=== PATIENT | male | born 1980 | race Caucasian/White ===

== ENCOUNTER 2021-08-17 18:10 | Emergency (ER) | payer OTHER | END 2021-08-18 00:19 | disposition home or self-care (01) | LOC: FER 18:10 | DX: M25.561 Pain in right knee (principal); M54.50 Low back pain, unspecified; W17.2XXA Fall into hole, initial encounter; Y92.009 Unspecified place in unspecified non-institutional (private) residence as the place of occurrence of the external cause | CPT/HCPCS: 72131; 73564; 73590 ==

== ENCOUNTER → 2021-11-15 | Day surgery (SDC) | payer OTHER ==
[~2021-11-15] VITALS: Ht 172.7 cm; Wt 86.2 kg
[~2021-11-15] MED LIST: ARTANE2 MG PO; BACLOFEN 20MG T20 MG PO; GABAPENTIN600 MG PO; HYDROCODON-ACE1 EAC2 PO; LAMICTAL100 MG PO; PERSERIS PO; PROZAC20 MG PO; REMERON15 MG PO
[2021-11-15 07:32] LABS: HCT 43.8 % (42.0-52.0); MCH 32.3 pg (25.0-31.0); MCHC 34.2 g/dL (32.0-36.0); MCV 94.2 fL (78.0-100.0); MPV 8.6 fL (6.0-9.5); RBC 4.65 M/uL (4.70-6.00); RDW 13.5 % (11.5-14.0); WBC 4.6 K/uL (4.0-10.5)
[2021-11-15 08:07] LABS: BILIRUBIN - TOTAL 0.4 mg/dL (0.2-1.0); BUN/CREAT RATIO (CALC) 15.7 RATIO; CREATININE 1.08 mg/dL (0.67-1.17); GLOBULIN (CALCULATION) 3.7 g/dL; POTASSIUM 3.7 mmol/L (3.5-5.1); TOTAL PROTEIN 7.7 g/dL (6.4-8.2)
== END | disposition home or self-care (01) ==
LOC: FAS 06:41
PROVIDERS: Orthopaedic Surgery
DX: S83.281A Other tear of lateral meniscus, current injury, right knee, initial encounter (principal); M17.11 Unilateral primary osteoarthritis, right knee; M23.41 Loose body in knee, right knee; M25.861 Other specified joint disorders, right knee; F31.9 Bipolar disorder, unspecified; Z79.899 Other long term (current) drug therapy; X58.XXXA Exposure to other specified factors, initial encounter
CPT/HCPCS: 36415; 71045; 80053; 93005; J2250; J2405; J2704; J3010; J7120